=== PATIENT | female | born 1940 | race Caucasian/White ===

== ENCOUNTER 2016-04-27 10:01 | Outpatient (CLI) | payer OTHER ==
[~2016-04-27 10:01] MED LIST: ALEVE220 MG PO; ASPIRIN EC81 MG; ATENOLOL100 MG PO; B COMPLEX; FIBER TABS625 MG; FLAX SEED OIL1000 MG; MAG6464 MG PO; MULTI FOR HER 50+; NORCO1 TA1 PO; SIMVASTATIN80 MG; SURFAK240 MG PO; VITAMIN C500 M1 PO; VITAMIN D-32000 UNIT PO; calcium PO
--- NOTE | 2016-04-27 11:30 | DIAGNOSTIC IMAGING REPORT ---
PROCEDURE: MG BILATERAL SCREENING W/CAD INDICATION: SCREENING TECHNIQUE: Bilateral CC and MLO digital views. COMPARISON: Compared to 04/18/2015, 04/03/2014, 02/28/2013, 05/04/2012, 04/27/2012, and 04/15/2011. FINDINGS: Computer-aided detection applied. Moderately dense with a few dystrophic and micro calcifications. No change. IMPRESSION: 1. Negative mammogram. RESULT CODE: 1- Negative. A. A negative report should not delay biopsy if a dominant or clinically suspicious mass is present. 10-15% of cancers are not identified by x-ray. B. A negative report may reinforce clinical impression. C. Adenosis and dense breasts may obscure an underlying neoplasm. D. False positive reports average 6-10%. E.. A yearly screening mammogram is recommended. A reminder letter will be scheduled.
== END 2016-04-27 23:00 ==
LOC: MAM SRH 10:01
DX: Z12.31 Encounter for screening mammogram for malignant neoplasm of breast (principal)